=== PATIENT | female | born 1940 | race Caucasian/White ===

== ENCOUNTER 2017-01-01 10:03 | Inpatient (IN) | payer MEDICARE, OTHER ==
[~2017-01-01] VITALS: Ht 157.5 cm; Wt 56.6 kg
--- NOTE | ~2017-01-01 | HEMODYNAMI ---
PATIENT:RUPESH JACOB MEDICAL RECORD: [id number] : 44 LOCATION:[facility] D.2104 ADMISSION DATE: 01/01/17 Generatedon:01/02/20179:52 Patient name: RUPESH JACOB Patient #: [id number] SSN: : 1940 Date of study: 01/02/2017 Page: Of Hemodynamic Procedure Report Patient Data Patient Demographics Procedure consent was obtained First Name: RUPESH Gender: Female Last Name: NIDIA : 1940 Patient #: [id number] Age: 76 year(s) Race: Unknown Additional ID: [id number] Contact details [address]: [address] [place] [address] ROAD State: [place] City: [place] Zip code: [address] Admission Admission Data Admission Date: 01/01/2017 Admission Time: 10:03 Room #: D2104 Procedure Procedure Types Cath Procedure Peripheral Cath Diagnostic Procedure Miscellaneous Procedure Description Procedure Date Procedure Date: 01/02/2017 Procedure Start Time: 8:56 Procedure Staff Name Function Johan Mtz MD Performing Physician Jaimie Ho RT Scrub Magaly Tolbert RN Nurse Jaimie Gillette RN Nurse Nikhil Mckeon RT Monitor Procedure Data Cath Procedure Fluoroscopy Diagnostic fluoroscopy Total fluoroscopy Time: time: 12.3 min 12.3 min Diagnostic fluoroscopy Total fluoroscopy dose: 529 dose: 529 mGy mGy Contrast Material Contrast Material Type Amount (ml) Isovue 300 99 Entry Location Entry Primary Successful Side Size Upsize Upsize Entry Closure Succes sful Closure Location (Fr) 1 (Fr) 2 (Fr) Remarks Device Remarks Femoral Right 5 Fr Exoseal artery Diagnostic catheters Device Type Used For End Catheter Placement Merit ULTRA BOLUS FLUSH 5Fr 90CM catheter Merit Impress Mendoza 5FR. 100CM catheter Joshfire HN5 5F/100CM catheter Procedure Medications Medication Administration Route Dosage Fentanyl I.V. 50 mcg Versed I.V. 1 mg Fentanyl I.V. 50 mcg Versed I.V. 1 mg Benadryl I.V. 50 mg Fentanyl I.V. 50 mcg Versed I.V. 1 mg Hydralizine 10 mg Hemodynamics Rest Heart Rate: 61 (bpm) Snapshots Pre Cath Intra NCS Post Cath Vital Signs Time Heart Resp SPO2 NIBP (mmHg) Rhythm Pain Sedation Rate (ipm) (%) Status Level (bpm) 8:38:24 63 13 100 169/63(90) NSR 0 (11) 10(A) , No pain 8:43:07 61 15 98 79/37(63) NSR 0 (11) 10(A) , No pain 8:48:10 60 14 100 178/72(153) NSR 0 (11) 10(A) , No pain 8:53:09 65 17 100 Measuring NSR 0 (11) 10(A) , No pain 8:54:31 62 14 100 Time NSR 0 (11) 10(A) Exceeded , No pain 8:58:39 60 15 100 149/83(136) NSR 0 (11) 10(A) , No pain 9:03:03 60 15 98 166/67(138) NSR 0 (11) 10(A) , No pain 9:07:38 61 14 99 168/54(128) NSR 0 (11) 10(A) , No pain 9:12:04 59 14 98 173/74(109) NSR 0 (11) 10(A) , No pain 9:17:03 65 13 100 Measuring NSR 0 (11) 10(A) , No pain 9:21:21 69 19 100 193/76(143) NSR 0 (11) 10(A) , No pain 9:26:59 66 19 100 195/76(136) NSR 0 (11) 10(A) , No pain 9:31:31 63 19 100 187/86(155) NSR 0 (11) 10(A) , No pain 9:36:06 64 18 100 198/77(131) NSR 0 (11) 10(A) , No pain 9:40:42 63 19 98 186/81(130) NSR 0 (11) 10(A) , No pain 9:45:41 60 15 100 Measuring NSR 0 (11) 10(A) , No pain 9:46:14 60 13 100 184/60(127) NSR 0 (11) 10(A) , No pain Medications Time Medication Route Dose Verified Delivered Reason Notes Effectiv eness by by 8:55:50 Fentanyl I.V. 50 Magaly Magaly for sedation mcg Didi Tolbert RN RN 8:55:55 Versed I.V. 1 mg Magaly Magaly for sedation Didi Finneyaway RN RN 9:05:12 Fentanyl I.V. 50 Magaly Magaly for sedation mcg Didi Didi RN RN 9:05:28 Versed I.V. 1 mg Magaly Magaly for sedation Didi Tolbert RN RN 9:13:26 Benadryl I.V. 50 mg Magaly Magaly for sedation Didi Tolbert RN RN 9:30:41 Fentanyl I.V. 50 Magaly Magaly for sedation mcg Didi Tolbert RN RN 9:30:56 Versed I.V. 1 mg Magaly Magaly for sedation Didi Finneyaway RN RN 9:40:51 Hydralizine 10 mg Magaly Magaly for Didi Tolbert hypertension RN netezza architect Log Time Note 8:29:17 Nikhil Mckeon RT (R) (CV) sent for patient. Start room use. 8:29:25 Time tracking: Regular hours 8:29:29 Plan of Care:Hemodynamics will remain stable., Cardiac rhythm will remain stable., Comfort level will be maintained., Respiratory function will remain adequate., Patient/ family verbilizes understanding of procedure., Procedure tolerated without complication., Recovers from procedure without complications.. 8:29:36 Patient received from Med II to Alert and oriented. Tansferred to table in Supine position. 8:29:37 Correct patient and procedure confirmed by team. 8:29:39 Signed procedure consent form obtained from patient. 8:29:40 ECG and BP/O2 sat monitors applied to patient. 8:29:41 Full Disclosure recording started 8:29:42 8:29:47 H&P Date Dictated: 01/02/2017 Within 30 days and on chart.. 8:29:51 Pre-procedure instructions explained to patient. 8:29:52 Pre-op teaching completed and patient verbalized understanding. 8:29:54 Family in waiting room. 8:29:56 Patient NPO since Midnight. 8:30:00 Is the patient allergic to Iodine/contrast media? No. 8:30:01 Is patient on blood thinner?Yes 8:30:05 ACC The patient was administered the following blood thiners within the last 24 hours: ACCAspirin, ACCPlavix 8:30:07 If diabetic: On Metformin? No 8:30:08 8:30:09 ----Pre-sedation anethsthesia assessment.---- 8:30:11 Previous problem with sedation/anesthesia? No ? 8:30:12 Snore? Yes 8:30:14 Sleep apnea? No 8:30:15 Deviated septum? No 8:30:16 Opens mouth fully? Yes 8:30:18 Sticks out tongue? Yes 8:30:20 Airway obstruction? No ? 8:30:22 Dentures? No ? 8:30:23 8:30:28 Use device set IR Diagnostic 8:30:29 Acist Syringe opened to sterile field. 8:30:29 Acist Hand Control opened to sterile field. 8:30:29 Acist Manifold opened to sterile field. 8:30:30 Bag Decanter opened to sterile field. 8:30:30 Sterile Angiographic Pack opened to sterile field. 8:37:10 Vital chart was started 8:38:12 Pre procedure: right dorsailis pedis pulse Doppler 8:38:19 Pre procedure: left dorsailis pedis pulse Doppler 8:39:27 Right groin area was prepped with chlora-prep and draped in sterile fashion 8:39:35 Alarms reviewed by R. N. 8:39:39 Sharps counted by scrub and verified by R.N. 8:48:19 Baseline sample Acquired. 8:48:25 Rhythm: sinus rhythm 8:55:32 Physician arrived 8:55:32 --------ALL STOP TIME OUT------ 8:55:33 Final Timeout: patient, procedure, and site verified with staff and physician. All members of the team are in agreement. 8:55:35 Right groin site verified by team. 8:55:41 Physical assessment completed. ASA score P 3 - A patient with severe systemic disease as per Johan Mtz MD. 8:55:46 Sedation plan: IV Moderate Sedation Versed, Fentanyl 8:55:50 Fentanyl 50 mcg I.V. was administered by Magaly Tolbert RN; for sedation; 8:55:55 Versed 1 mg I.V. was administered by Magaly Tolbert RN; for sedation; 8:56:02 Procedure started. 8:56:09 Local anesthetic to right femoral artery with Lidocaine 1% by Johan Mtz MD.INITIAL ACCESS ONLY 8:56:37 TUBING, CONTRAST INJCTN HI PRES opened to sterile field. 8:56:37 Micropuncture VSI 4FR kit opened to sterile field. 8:56:38 [employer] HealthSON 145cm guide wire opened to sterile field. 8:56:38 Terumo 5Fr [place] Sheath opened to sterile field. 8:56:41 A TickPick ULTRA BOLUS FLUSH 5Fr 90CM catheter was advanced over the wire and used for . 8:56:56 A 5 Fr sheath was inserted into the Right Femoral artery 9:05:12 Fentanyl 50 mcg I.V. was administered by Magaly Tolbert RN; for sedation; 9:05:28 Versed 1 mg I.V. was administered by Magaly Tolbert RN; for sedation; 9:07:09 A TickPick Impress Mendoza 5FR. 100CM catheter was advanced over the wire and used for . 9:08:[address] .035 145 glide wire opened to sterile field. 9:13:26 Benadryl 50 mg I.V. was administered by Magaly Tolbert RN; for sedation; 9:26:59 A Cook HN5 5F/100CM catheter was advanced over the wire and used for . 9:30:41 Fentanyl 50 mcg I.V. was administered by Magaly Tolbert RN; for sedation; 9:30:56 Versed 1 mg I.V. was administered by Magaly Tolbert RN; for sedation; 9:40:51 Hydralizine 10 mg was administered by Magaly Tolbert RN; for hypertension; 9:41:33 Cordis 5Fr Exoseal opened to sterile field. 9:43:31 Sheath removed intact; hemostasis achieved with Exoseal to the Right Femoral artery. 9:43:34 Procedure ended.(Physican Out) 9:43:49 Fluoroscopy time 12.30 minutes. 9:43:53 Fluoroscopy dose: 529 mGy 9:43:53 Flurop Dose total: 529 9:44:04 Contrast amount:Isovue 300 99ml. 9:44:06 Sharps counted by scrub and verified by R.N. 9:44:07 Insertion/operative site no bleeding no hematoma. 9:44:11 Post-op/insertion site Right Femoral artery dressed using a 4 x 4 and Tegaderm. 9:44:14 Post right femoral artery:stable 9:44:15 Post Procedure Pulses reassessed and unchanged 9:44:24 Post-procedure physical assessment completed. ASA score P 3 - A patient with severe systemic disease as per Johan Mtz MD. 9:44:28 Post procedure rhythm: unchanged. 9:44:32 Post procedure instruction explained to patient.Patient verbalizes understanding. 9:51:09 Procedure and supply charges have been captured, reviewed, submitted and are correct. 9:51:12 Report given to Med II. 9:51:15 Patient transfered to Med II with Bed. 9:52:40 Vital chart was stopped Device Usage Item Name Manufacture Quantity Catalog Number Hospital Part Current Min imal Lot# / Charge Number Stock Stock Serial# Code Acist Syringe Acist 1 86239 356136 969160 [id number] 20 In Ovo Acist Hand Acist 1 70269 502449 469029 806692 5 Control Flint Inc Acist Acist 1 23835 198648 016078 460661 5 Manifold Medical Systems Inc Bag Decanter Microtek 1 2002S 273215 02349 042243 5 Medical Inc. Sterile Cardinal 1 [id number] 528685 820922 5 Angiographic Health Pack TUBING, Merit 1 [id number] 692468 145623 292352 5 CONTRAST Medical INJCTN HI PRES Micropuncture VSI VASCULAR 1 7266V 546126 846599 5 VSI 4FR kit SOLUTIONS Cook [facility] 1 [id number] 487965 494300 5 [id number] 145cm guide wire Terumo 5Fr Terumo 1 [id number] 753656 905759 669992 40 [place] Sheath Merit ULTRA Merit 1 [id number] 090138 733487 5 BOLUS FLUSH Medical 5Fr 90CM catheter Merit Impress Merit 1 [id number] 093100 630483 5 Mendoza Medical 5FR. 100CM catheter Cook [facility] 1 [id number] 732628 932906 [id number] .035 145 glide wire Cook HN5 [facility] 1 [id number] 812921 014385 2 5F/100CM catheter Cordis 5Fr Cardinal 1 EX500 147952 589689 194053 10 [id number] [facility] Signature Audit [place] Stage Time Signature Unsigned Intra-Procedure 01/02/2017 Nikhil 9:52:37 AM Shahanaield RT (R) (CV) Signatures Monitor : Nikhil Signature : Linda RT Date : Time : [facility] [address] [place] [address]
[~2017-01-01 10:03] MED LIST: ASPIRIN325 MG PO; COZAAR25 MG PO; FERROUS FUMARA324 MG PO; HYDROCHLOROTH12.5 M1 PO; HYDROCODONE-APA1 TAB PO; KLONOPIN0.5 MG PO; PLAVIX75 MG PO; PRAVACHOL80 MG PO; PROTONIX40 MG PO; TYLENOL W/CODEI1 TAB PO; ZANAFLEX4 MG PO; ZANTAC150 MG; ZANTAC150 MG PO; ZOLOFT100 MG PO
--- NOTE | 2017-01-01 10:25 | NUR ---
PT RECEIVED TO ROOM 2103. PT ORIENTED TO ROOM AND CALL LIGHT, WILL ASSESS PT AND START PLAN OF CARE. CT HERE TO TAKE PT TO XRAY.
[2017-01-01 10:59] LABS: BASOPHILS 0.9 % (0-2); EOSINOPHILS 4.2 % (0-7); HEMATOCRIT 35.2 % (36.0-48.0); HEMOGLOBIN 10.5 g/dL (12-16); IMMATURE GRANULOCYTES 0.1 % (0-5); LYMPHOCYTES 27.2 % (15-50); MCHC 29.8 g/dL (31.0-37.0); MCV 100.6 fL (80.0-100.0); MEAN PLATELET VOLUME 10.2 fL (7.4-10.4); MONOCYTES 8.1 % (2-11); NEUTROPHILS 59.5 % (40-80); PLATELET COUNT 312 10x3/uL (130-400); RDW 16.6 % (11.5-14.5); WBC 7.6 10x3/uL (4.8-10.8)
--- NOTE | 2017-01-01 11:09 | NUR ---
IV ACCESS-20 GAUGE INSERTED IN RIGHT ARM FOR ACCESS. KHUSHI FINNEY RN
[2017-01-01 11:24] LABS: APTT 27.6 SECONDS (22.8-39.4); INR 0.99 (0.85-1.17); PROTIME 12.9 SECONDS (11.6-15.0)
[2017-01-01 11:30] LABS: ALBUMIN 4.3 g/dL (3.4-5.0); ANION GAP 16.9 mmol/L (8-16); BILIRUBIN - TOTAL 0.17 mg/dL (0.2-1.3); CARBON DIOXIDE 20.8 mmol/L (21.0-32.0); CREATININE - SERUM 1.7 mg/dL (0.6-1.3); POTASSIUM - SERUM 5.7 mmol/L (3.5-5.1); PROTEIN - SERUM 7.2 g/dL (6.4-8.2)
--- NOTE | 2017-01-01 12:29 | NUR ---
CONSENTS SIGNED AND PLACED ON CHART, URINE SAMPLE COLLECTED AND TAKEN TO LAB. INFORMED PT ABOUT SCD'S AND WHAT THEY ARE USED FOR . PT REFUSED TO WEAR THE SCD'S AT THIS TIME, BUT WANTS THEM HOOKED UP TO WEAR THEM AT NIGHT. PT DENIES ANY NEEDS AT THIS TIME. CALL LIGHT IN REACH, NAD NOTED, WILL CONTINUE TO MONITOR.
[2017-01-01] MEDS ORDERED: MUCOMYST 2800 MG/4 M PO (12:39)
[2017-01-01] MEDS ORDERED: ECOTRIN325 MG PO (12:42)
--- NOTE | 2017-01-01 12:49 | NUR ---
PT STATED THAT DR. TABOR TOLD HER THAT SHE COULD TAKE HER OWN HOME MED OF MUCOMYST. WILL LET PHARMACY SO THEY CAN PUT A LABEL ON IT.
[2017-01-01 13:55] VITALS: BP 139/46; Ht 157.5 cm; Wt 56.6 kg
[2017-01-01 14:05] LABS: APPEARANCE CLEAR (CLEAR); BACTERIA MODERATE /hpf (NONE SEEN); BILIRUBIN NEGATIVE (NEGATIVE); COLOR YELLOW (YELLOW); EPITHELIAL CELLS 0-5 /hpf (0-5); GLUCOSE NEGATIVE (NEGATIVE); HYALINE CAST 0-5 /lpf (NONE SEEN); KETONE NEGATIVE (NEGATIVE); LEUKOCYTE ESTERASE TRACE (NEGATIVE); MUCUS >1+ /lpf (NONE SEEN); NITRITE NEGATIVE (NEGATIVE); PROTEIN NEGATIVE (NEGATIVE); RED CELLS - URINE RARE /hpf (0-5); SPECIFIC GRAVITY 1.015 (1.005-1.020); UROBILINOGEN NORMAL (NORMAL); WHITE CELLS - URINE 0-5 /hpf (0-5)
[2017-01-01 16:00] VITALS: BP 108/40
--- NOTE | 2017-01-01 16:30 | NUR ---
CALLED PHARMACY AND TOLD THEM THAT I NEEDED SODIUM BICARB FOR PT. FUEL YARD OPERATOR STATED THAT THEY WERE MIXING IT AND WOULD BRING IT UP SOON.
--- NOTE | 2017-01-01 17:00 | NUR ---
MOSES TABOR NURSE CALLED AND ASKED WHY IV FLUIDS HAD NOT BEEN STARTED YET. THERE WERE NO IV FLUIDS ORDER TO BE STARTED, THE ONLY OREDER ON CHART WAS FOR SODIUM BICARB D5W ML IV SOLN- PRE CONTRAST START AT 3ML/KG/HR XI HR PRIOR TO PROCEDURE, POST CONTRAST- CONTINUE 1ML/KG/HR X6 HRS. ORDER FOR SODIUM BICARBONATE D5W 1000ML IV SOLN. AT 100MLS/HR WAS PUT IN TO START AT [address] BETANCUR AT 1616. IV FLUIDS STARTED INFUSING AT 1710.
--- NOTE | 2017-01-01 19:36 | NUR ---
ASSESSMENT COMPLETE, A&O. RESPERATIONS EVEN ON ROOM AIR. IV TO RIGHT FOREARM WITH SODIUM BICARB INFUSING AT 100, SITE CLEAN AND DRY. PT DENIES PAIN OR NEEDS, BED LOW, CL IN REACH.
--- NOTE | 2017-01-01 19:52 | NUR ---
PLACED ON TELEMETRY, 66 SR PER MT.
[2017-01-01 20:00] VITALS: BP 165/72; BP 203/86
--- NOTE | 2017-01-01 21:49 | NUR ---
HS MEDS GIVEN, PT TAKING OWN HOME DOSE OF MUCOMYST, DENIES PAIN OR NEEDS.
[2017-01-02] VITALS (14 sets, daily range): BP systolic 92–176; BP diastolic 39–106
--- NOTE | 2017-01-02 03:28 | NUR ---
RESTING WITH EYES CLOSED, RESPERATIONS EVEN, NO S/S DISTRESS NOTED.
[2017-01-02 04:44] LABS: BASOPHILS 0.7 % (0-2); EOSINOPHILS 5.7 % (0-7); HEMATOCRIT 33.4 % (36.0-48.0); HEMOGLOBIN 10.1 g/dL (12-16); IMMATURE GRANULOCYTES 0.1 % (0-5); LYMPHOCYTES 17.8 % (15-50); MCHC 30.2 g/dL (31.0-37.0); MCV 99.1 fL (80.0-100.0); MEAN PLATELET VOLUME 10.1 fL (7.4-10.4); MONOCYTES 11.4 % (2-11); NEUTROPHILS 64.3 % (40-80); PLATELET COUNT 275 10x3/uL (130-400); RBC 3.37 10x6/uL (4.00-5.40); RDW 16.4 % (11.5-14.5); WBC 8.1 10x3/uL (4.8-10.8)
[2017-01-02 04:49] LABS: APTT 27.8 SECONDS (22.8-39.4); INR 0.98 (0.85-1.17); PROTIME 12.9 SECONDS (11.6-15.0)
[2017-01-02 04:59] LABS: ANION GAP 9.4 mmol/L (8-16); CALCIUM 7.9 mg/dL (8.5-10.1); CARBON DIOXIDE 30.5 mmol/L (21.0-32.0); CREATININE - SERUM 1.3 mg/dL (0.6-1.3); POTASSIUM - SERUM 3.9 mmol/L (3.5-5.1)
--- NOTE | 2017-01-02 05:36 | NUR ---
WILL CONTINUE WITH PLAN OF CARE, CALL LIGHT IN REACH.
--- NOTE | 2017-01-02 07:38 | NUR ---
PT IS RESTING IN BED WITH EYES OPEN. ALERT AND ORIENTED X 3. DENIES ACUTE DISCOMFORT AT THIS TIME. PT JUST SHOWERED FOR PROCEDURES TODAY. IV INFUSING TO RFA WITHOUT DIFFICULTY. NO REDNESS OR EDEMA NOTED AT THE INSERTION SITE. TELEMETRY UNIT IS INTACT. SR'S ARE UP X 2 IN BED. CALL LIGHT AND BEDSIDE TABLE ARE WITHIN EASY REACH.
--- NOTE | 2017-01-02 08:25 | NUR ---
PT DEPARTING UNIT FOR PROCEDURES AT THIS TIME.
--- NOTE | 2017-01-02 12:04 | NUR ---
IV FLUIDS STOPPED PER MD ORDER.
--- NOTE | 2017-01-02 14:59 | NUR ---
PT ASSISTED UP TO VOID. UA SENT TO LAB.
--- NOTE | 2017-01-02 15:49 | NUR ---
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 Patient gave consent to complete assessment. Patient lives in a one story home with her . She is independent in her care at home. She does not use dme nor does she have community resources. She denied dc needs at this time. She feels dc to home with spouse is safe. Cm will continue to follow and will assist with dc plans/needs. Gisel Henning RN, [facility] [phone] Is the patient Alert and Oriented? Yes * How many steps to enter\exit or inside your home? none * PCP Dr. Ryan Leavitt * Pharmacy [facility] [employer] * Preadmission Environment Home with Family * ADLs Independent * Equipment None * List name and contact numbers for known caregivers / representatives who currently or will assist patient after discharge: Zach Jacob - spouse - [phone] * Community resources currently utilized None * Additional services required to return to the preadmission environment? No * Can the patient safely return to the preadmission environment? Yes * Has this patient been hospitalized within the prior 30 days at any hospital? No
--- NOTE | 2017-01-02 17:08 | NUR ---
PT IS RESTING IN BED FEEDING SELF SUPPER. NO NEEDS VOICED. GROIN INCISION IS SOFT AND NONTENDER. NO BLEEDING NOTED.
[2017-01-02] MEDS ORDERED: ASPIRIN EC81 M1 PO (17:51)
--- NOTE | 2017-01-02 19:15 | NUR ---
PT RECEIVED LYING IN BED AAOX3 WATCHING TV AT THIS TIME. S/L NOTED TO RT FOREARM. DRESSING CDI. HEART RRR. LUNG SOUNDS CLEAR BILATERALLY. BOWEL SOUNDS ACTIVE X4 QUADRENTS. ABDOMEN SOFT, NON-TENDER. INCISION NOTED TO RIGHT GROIN WITH DRESSING. CDI. PEDAL PULSES EQUAL BILATERALLY. PT DENIES NEEDS AT THIS TIME. RATES PAIN 2/10. BED LOW. PHONE AND CALL LIGHT IN REACH. SRX2.
--- NOTE | 2017-01-02 21:57 | NUR ---
PM MEDS GIVEN AT THIS TIME. PT DENIES OTHER NEEDS. BED LOW. PHONE AND CALL LIGHT IN REACH. SRX2.
--- NOTE | 2017-01-02 23:41 | NUR ---
PT RESTING QUIETLY AT THIS TIME WITH EYES CLOSED. RESPIRATIONS EVEN, NON-LABORED. NO ACUTE DISTRESS NOTED AT THIS TIME. BED LOW. PHONE AND CALL LIGHT IN REACH. SRX2.
[2017-01-03 00:56] VITALS: BP 130/39
[2017-01-03 04:00] VITALS: BP 146/66
--- NOTE | 2017-01-03 08:08 | NUR ---
AM ROUNDS - PT AWAKE IN BED. DRESSING TO RIGHT GROIN THAT IS CLEAN, DR AND INTACT FROM A STEN PLACEMENT ON 5MAY17. BILATERAL PEDAL PULSES PRESENT. PT ON RA. RIGHT FA, SL. MONITOR SHOWING SR, HR 69. NO NEEDS AT THIS TIME. WILL CONTINUE TO MONITOR.
[2017-01-03 09:30] VITALS: BP 142/52
[2017-01-03 10:42] LABS: BASOPHILS 0.4 % (0-2); HEMATOCRIT 35.4 % (36.0-48.0); HEMOGLOBIN 10.7 g/dL (12-16); IMMATURE GRANULOCYTES 0.2 % (0-5); MCH 29.9 pg (26.0-34.0); MCHC 30.2 g/dL (31.0-37.0); MCV 98.9 fL (80.0-100.0); MONOCYTES 10.8 % (2-11); NEUTROPHILS 68.6 % (40-80); PLATELET COUNT 309 10x3/uL (130-400); RBC 3.58 10x6/uL (4.00-5.40); RDW 16.3 % (11.5-14.5); WBC 8.9 10x3/uL (4.8-10.8)
[2017-01-03 10:49] LABS: CALCIUM 8.5 mg/dL (8.5-10.1); CARBON DIOXIDE 30.7 mmol/L (21.0-32.0); CREATININE - SERUM 1.5 mg/dL (0.6-1.3); POTASSIUM - SERUM 3.7 mmol/L (3.5-5.1)
[2017-01-03] MEDS ORDERED: COZAAR25 MG PO ×2 (12:40)
--- NOTE | 2017-01-03 13:06 | HP ---
PATIENT: RUPESH JACOB MEDICAL RECORD: [id number] ACCOUNT: [id number] LOCATION:[address] : 42 ADMISSION DATE: 01/01/17 HISTORY AND PHYSICAL EXAMINATION RUPESH Schneider (76yo, F) ID# [id number]. Date/Time12/29/2016 11:78QPVRW21//1942Service Dept.NPP[facility] ClinicProviderEDLUCILLE TABOR MDInsuranceMed Primary: [employer] - GOLD PLUS (MEDICARE REPLACEMENT/ADVANTAGE - HMO) Insurance # : [id number] Referring Provider Name : HANNAH WILLIAM Employer Name : UNKNOWN Med Secondary: [facility] Insurance # : [id number] Referring Provider Name : HANNAH WILLIAM Employer Name : UNKNOWN Prescription: ARGSDIR - Member is eligible. Chief Complaint Carotid stenosis carotid stenosis/carotid doppler Patient's Care Team Referring Provider (): HANNAH WILLIAM: [address] [place] [address], , Limehouse Worker: NILESH HERNANDEZ MD: [address] [place] [id number], , Vitals BP:110/60 sitting R arm 12/29/2016 10:54 am 100/50 sitting L arm 12/29/2016 10:54 amHR:66R/R 12/29/2016 10:54 amHt:5 ft 2 in 12/29/2016 10:54 amWt:122 lbs 12/29/2016 10:51 amBMI:22.3 12/29/2016 10:54 amAllergies Reviewed Allergies PRILOSECSULFA (SULFONAMIDE ANTIBIOTICS)ULTRAMMedications Reviewed Medications acetaminophen 300 mg-codeine 30 mg tablet Take 1 tablet(s) every 6 hours by oral route as needed.12/12/16 filledKandu Systemsalpha lipoic acid 200 mg capsule Take 1 capsule(s) 3 times a day by oral route.12/12/16 enteredCindy BrownALPRAZolam 0.5 mg nwplza34/11/17 filledKandu SystemsclonazePAM 0.5 mg tablet Take 1 tablet(s) twice a day by oral route as needed.12/12/16 filledArgus Health SystemsEstrace 0.01% (0.1 mg/gram) vaginal cream Insert 0.1 g twice a week by vaginal route.12/12/16 enteredCindy BrownhydroCHLOROthiazide 12.5 mg wviocy16/12/16 filledArgus Calypto Design Systems SystemshydroCHLOROthiazide 25 mg tablet Take 1 tablet(s) every day by oral route.12/15/16 filledArgus Health SystemsHYDROcodone 10 mg-acetaminophen 325 mg jrmiit73/18/16 filledArgus Health Systemslisinopril 20 mg zxzykf45/23/16 filledArgus Health Systemslosartan 25 mg uwmqta53/21/16 filledArgus Health Systemslosartan 50 mg tablet Take 0.5 tablet(s) twice a day by oral route.12/15/16 filledArgus Calypto Design Systems Systemsnitroglycerin 0.[address] 1 tablet(s) by sublingual route as directed.12/12/16 enteredCindusty Batrespantoprazole 40 mg tablet,delayed release Take 1 tablet(s) every day by oral route.12/12/16 enteredCindusty BrownPlavix 75 mg tablet Take 1 tablet(s) every day by oral route.12/12/16 enteredPark Batrespravastatin 80 HISTORY AND PHYSICAL [id number] NIDIA,RUPESH mg tablet Take 1 tablet(s) every day by oral route.12/12/16 enteredPark BatresraNITIdine 150 mg tuxnmd87/07/16 filledKandu SystemsSlow Release Iron 47.5 mg iron tablet,extended release Take 1 tablet(s) twice a day by oral route.12/12/16 enteredCindusty BatrestiZANidine 4 mg capsule Take 1 capsule(s) twice a day by oral route as needed.12/12/16 enteredCindusty BrowntiZANidine 4 mg lvzazi14/23/17 filledArgus Health SystemsZoloft 100 mg tablet Take 1 tablet(s) every day by oral route.12/12/16 Onelia Adkinsms Reviewed Problems Carotid artery stenosis - Onset: 12/12/2016, Bilateral Family History Discussed Family History Maternal Grandfather- Myocardial infarctionMother- HyperlipidemiaSocial History Discussed Social History Cardiology Family history of heart disease?: Y Smoking Status: Former smoker High Cholesterol: Y High blood pressure: Y Diabetes: N Is blood transfusion acceptable in an emergency?: Y Surgical History Reviewed Surgical History Other - PPM placement Other - orthopedic surgery Other - PTCA/stent Other - appendectomy Other - Hysterectomy Carotid Endarterectomy - Left x 3 CLOTH EXAMINER History (not configured) Past Medical History Discussed Past Medical History Angioplasty (balloon): Y Chest Pain: Y Coronary Artery Disease: Y Dizzy Spells: Y Heart Disease: Y Heart stents: Y High Blood Pressure: Y Hyperlipidemia: Y Shortness of Breath: Y Documents for Discussion N/A Screening None recorded. HPI Cerebral Vascular Disease Reported by patient. Quality: blurred vision ("I think by b/p gets to low? it gets too bright. difficult to see.") HISTORY AND PHYSICAL [id number] RUPESH JACOB carotid artery disease Possible renovascular hypertension ROS Patient reports exercise intolerance but reports no fever, no night sweats, no significant weight gain, and no significant weight loss. She reports no jugular vein distension and no swollen glands; bilateral carotid bruits. She reports arthralgias/joint pain and swelling in the extremities but reports no muscle aches, no muscle weakness, and no back pain. She reports no loss of consciousness, no weakness, no numbness, no seizures, no dizziness, and no headaches; visual disturbances. She reports no dry eyes, no irritation, and no vision change. She reports no difficulty hearing and no ear pain. She reports no frequent nosebleeds a nd no nose/sinus problems. She reports no sore throat, no bleeding gums, no snoring, no dry mouth, no mouth ulcers, no oral abnormalities, and no teeth problems. She reports no chest pain, no arm pain on exertion, no shortness of breath when walking, no s h ortness of breath when lying down, no palpitations, and no known heart murmur. She reports no cough, no wheezing, no shortness of breath, and no coughing up blood. She reports no abdominal pain, no vomiting, normal appetite, no diarrhea, not vomiting bloo d , no nausea, and no constipation. She reports no incontinence, no difficulty urinating, no hematuria, and no increased frequency. She reports no abnormal mole, no jaundice, and no rashes. She reports no depression, no sleep disturbances, feeling safe in r elationship, and no alcohol abuse. She reports no fatigue. She reports no swollen glands and no bruising. She reports no runny nose, no sinus pressure, no itching, no hives, and no frequent sneezing. ROS as noted in the HPI Physical Exam Patient is a 76-year-old female. Constitutional: General Appearance well nourished and developed and healthy-appearing. Level of Distress NAD. Ambulation ambulating normally. Cardiovascular: Apical Impulse not displaced or no thrill; pacemaker left subclavian area. Heart Auscultation normal s1 and s2; no murmurs, rubs, or gallops; and RRR. Neck Vessels bilateral carotid bruits. Arterial Pulses no abdominal aorta bruits, femoral bruits, or popliteal bruits and 2+ bilateral, carotid 2+ bilateral, femoral 2+ bilateral , popliteal 2+ bilateral, and dorsalis pedis 2+ bilateral. Edema no edema or varicosities. Lungs: Repiratory Effort no dyspnea. Percussion no dullness or flatness and hyperresonance . Auscultation no wheezing, rhonchi, or rales / crackles and breathing sounds normal, good air movement, and CTA except as noted. Abdomen: Bowl Sounds normal. Inspection and Palpation no tenderness, guarding, masses, or rebound tenderness and soft and non-distended. Liver non-tender and no hepatomegaly. Spleen non-tender and no splenomegaly. Hernia none palpable. Musculoskeletal System: Gait And Stance normal gait and stance. Digits and Nails normal nails and no cyanosis. Joints, Bones, and Muscles limited ROM; arthritis. Neurologic: Cranial Nerves grossly intact. Reflexes DTRs 2+ bilaterally throughout. Sensation grossly intact. Lymph Nodes: Lymph Nodes no cervical LAD, supraclavicular LAD, axillary LAD, or inguinal LAD. Eyes: Lids and Conjunctivae no discharge or pallor and non-injected. Pupils PERRLA. HISTORY AND PHYSICAL [id number] RUPESH JACOB Cornea grossly intact. EOM EOMI. Lens clear. Sclera non-icteric. Neck: Neck no masses or enlarged lymph nodes and supple, trachea midline, and carotid bruits (bilateral). Thyroid no enlargement or nodules and non-tender. Skin: Inspection and Palpation no rash, lesions, ulcers, jaundice, or abnormal nevi. Assessment / Plan carotid artery disease postop Times 3 left Possible renovascular hypertension Chronic renal failure stage III 1. Carotid artery stenosis - Bilateral I65.29: Occlusion and stenosis of unspecified carotid artery CAROTID STENOSIS: CARE INSTRUCTIONS Discussion Notes Unable to have the MRI Pacemaker chronic renal failure Will need admission for hydration and renal evaluation Interventional radiology for formal vessel and study possible stent Renal arteriograms DAMARIS TABOR MD at 1306 CC: [id number] DICTATION DATE: 12/29/16 1110 UNCRATER: DM 01/02/17 0824 ADM IN [facility] [address] [place] [address]
--- NOTE | 2017-01-03 13:50 | NUR ---
DR. TABOR CALLED AND WAS HAVING TECHNICAL ISSUES D/C A PT. TEN PIN BOWLING CENTRE MANAGER NOTIFIED. DR. TABOR SAID THAT HE DID NOT HAVE TIME TO BE "MESSING" WITH THIS AND STATED "WELL I AM GIVING YOU A VERBAL D/C ORDER".
[2017-01-03 16:11] VITALS: BP 171/68
--- NOTE | 2017-01-03 17:12 | NUR ---
PT GIVEN VERBAL AND WRITTEN D/C INSTRUCTIONS. D/C HOME WITH SPOUSE. PT LEFT FLOOR VIA WHEELCHAIR BY STAFF MEMEBRS. D/C IV IN RIGHT FS. CATH TIP INTACT. PT TOLERATED WELL. WILL D/C
== END 2017-01-03 15:30 | disposition home or self-care (01) | DRG 68 ==
LOC: D.M2 10:03
PROVIDERS: Internal Medicine; Radiology Diagnostic Radiology; ADMIT Internal Medicine Cardiovascular Disease
PROC: B3121ZZ Fluoroscopy of Left Subclavian Artery using Low Osmolar Contrast (ICD-10-PCS; 2017-01-02)
PROC: B4101ZZ Fluoroscopy of Abdominal Aorta using Low Osmolar Contrast (ICD-10-PCS; 2017-01-02)
PROC: B31G1ZZ Fluoroscopy of Bilateral Vertebral Arteries using Low Osmolar Contrast (ICD-10-PCS; principal; 2017-01-02 08:45)
DX: I65.23 Occlusion and stenosis of bilateral carotid arteries (principal); E87.2 Acidosis; N28.0 Ischemia and infarction of kidney; R56.9 Unspecified convulsions; I12.9 Hypertensive chronic kidney disease with stage 1 through stage 4 chronic kidney disease, or unspecified chronic kidney disease; N18.3 Chronic kidney disease, stage 3 (moderate); K21.9 Gastro-esophageal reflux disease without esophagitis; F41.9 Anxiety disorder, unspecified; E87.5 Hyperkalemia

== ENCOUNTER 2018-05-29 18:41 | Inpatient (IN) | payer MEDICARE, OTHER ==
[~2018-05-29] VITALS: Ht 154.9 cm; Wt 55.9 kg
[~2018-05-29 18:41] MED LIST changes: +ASPIRIN EC81 M1 PO; +ECOTRIN325 MG PO; +MUCOMYST 2800 MG/4 M PO
[2018-05-29 20:12] VITALS: BP 198/70
[2018-05-29 20:14] LABS: HEMATOCRIT 28.2 % (36.0-48.0); HEMOGLOBIN 8.5 g/dL (12-16); MCH 25.5 pg (26.0-34.0); MCHC 30.1 g/dL (31.0-37.0); MCV 84.7 fL (80.0-100.0); MEAN PLATELET VOLUME 9.4 fL (7.4-10.4); PLATELET COUNT 435 10x3/uL (130-400); RBC 3.33 10x6/uL (4.00-5.40); WBC 23.5 10x3/uL (4.8-10.8)
[2018-05-29 20:16] LABS: APPEARANCE CLEAR (CLEAR); BILIRUBIN NEGATIVE (NEGATIVE); COLOR DK YELLOW (YELLOW); GLUCOSE NEGATIVE (NEGATIVE); KETONE NEGATIVE (NEGATIVE); NITRITE POSITIVE (NEGATIVE); PROTEIN TRACE mg/dL (NEGATIVE); UROBILINOGEN NORMAL (NORMAL)
[2018-05-29 20:18] LABS: EPITHELIAL CELLS 0-5 /hpf (0-5); RED CELLS - URINE 0-5 /hpf (0-5)
[2018-05-29 20:19] LABS: APTT 23.5 SECONDS (22.8-39.4); BACTERIA MODERATE /hpf (NONE SEEN); GRANULAR CAST 0-5 /lpf (NONE SEEN); INR 1.09 (0.85-1.17); PROTIME 13.7 SECONDS (11.6-15.0)
[2018-05-29 20:20] LABS: D-DIMER-QUANTITATIVE 2.7 ug/mLFEU (0.20-0.54)
[2018-05-29 20:26] LABS: ALBUMIN 3.6 g/dL (3.4-5.0); ALKALINE PHOSPHATASE 186 U/L (46-116); ALT (SGPT) 14 U/L (10-68); BILIRUBIN - TOTAL 0.34 mg/dL (0.2-1.3); CALC OSMOLALITY 298 mosm/kg (275-300); CALCIUM 8.6 mg/dL (8.5-10.1); CARBON DIOXIDE 18.7 mmol/L (21.0-32.0); CHLORIDE - SERUM 108 mmol/L (98-107); CREATININE - SERUM 3.6 mg/dL (0.6-1.3); GLUCOSE 89 mg/dL (74-106); PROTEIN - SERUM 7.2 g/dL (6.4-8.2); SODIUM 142 mmol/L (136-145); UREA NITROGEN 59 mg/dL (7-18); eGFR NON AFRICAN AMERICAN 13 mL/min (90-120)
[2018-05-29 20:38] LABS: AMYLASE - SERUM 142 U/L (25-115); CKMB 5.7 U/L (0.0-3.6); CREATINE KINASE 149 UL (21-215); LIPASE 524 U/L (73-393); TROPONIN-I 0.027 ng/mL (0.000-0.060)
[2018-05-29 20:49] LABS: LYMPHOCYTES 7 % (15-50); MONOCYTES 2 % (2-11); NEUTROPHILS 91 % (40-80)
[2018-05-29 20:50] LABS: ELLIPTOCYTES 1+; PLATELET ESTIMATE INCREASED; SCHISTOCYTES OCC
[2018-05-29 20:51] LABS: ROULEAUX OCC
[2018-05-29 22:09] VITALS: BP 161/56
[2018-05-29 22:53] VITALS: BP 142/47; BMI 22.2
[2018-05-30 05:13] VITALS: BP 145/57
[2018-05-30 05:40] LABS: BASOPHILS 0.1 % (0-2); EOSINOPHILS 0 % (0-7); HEMATOCRIT 25.2 % (36.0-48.0); HEMOGLOBIN 7.6 g/dL (12-16); IMMATURE GRANULOCYTES 0.3 % (0-5); LYMPHOCYTES 7.4 % (15-50); MCH 25.7 pg (26.0-34.0); MCHC 30.2 g/dL (31.0-37.0); MCV 85.1 fL (80.0-100.0); MEAN PLATELET VOLUME 9.6 fL (7.4-10.4); MONOCYTES 6.1 % (2-11); NEUTROPHILS 86.1 % (40-80); PLATELET COUNT 382 10x3/uL (130-400); RBC 2.96 10x6/uL (4.00-5.40); RDW 17.2 % (11.5-14.5); WBC 20.6 10x3/uL (4.8-10.8)
[2018-05-30 05:54] LABS: ALBUMIN 3.1 g/dL (3.4-5.0); ANION GAP 20.3 mmol/L (8-16); BILIRUBIN - TOTAL 0.31 mg/dL (0.2-1.3); CALCIUM 8.2 mg/dL (8.5-10.1); CARBON DIOXIDE 18.3 mmol/L (21.0-32.0); CREATININE - SERUM 2.9 mg/dL (0.6-1.3); POTASSIUM - SERUM 4.6 mmol/L (3.5-5.1); PROTEIN - SERUM 6.4 g/dL (6.4-8.2)
[2018-05-30 14:11] LABS: % SATURATION 2 % (15-55); IRON 8 ug/dl (35-150); TOTAL IRON BIND CAPACITY 307 ug/dl (260-445); UNSAT IRON BIND CAPACITY 299 ug/dl (150-375)
[2018-05-30 14:37] LABS: APPEARANCE CLEAR (CLEAR); BILIRUBIN NEGATIVE (NEGATIVE); COLOR YELLOW (YELLOW); GLUCOSE NEGATIVE (NEGATIVE); KETONE SMALL mg/dL (NEGATIVE); NITRITE NEGATIVE (NEGATIVE); PROTEIN NEGATIVE (NEGATIVE); SPECIFIC GRAVITY 1.015 (1.005-1.020); UROBILINOGEN NORMAL (NORMAL)
[2018-05-30 14:39] LABS: RED CELLS - URINE 0-5 /hpf (0-5)
[2018-05-30 14:40] LABS: BACTERIA MODERATE /hpf (NONE SEEN); EPITHELIAL CELLS 0-5 /hpf (0-5)
[2018-05-30] MEDS ORDERED: LEXAPRO20 MG PO (17:39)
[2018-05-30] MEDS ORDERED: ALPHA LIPOIC ACID (17:41)
[2018-05-30] MEDS ORDERED: COZAAR50 MG PO (17:43)
[2018-05-30] MEDS ORDERED: CATAPRES0.1 MG PO (17:43)
[2018-05-30] MEDS ORDERED: COZAAR25 MG PO (17:47)
[2018-05-30 20:00] VITALS: BP 114/43
[2018-05-31] VITALS: BP 129/88
[2018-05-31 04:00] VITALS: BP 136/50
[2018-05-31 08:38] VITALS: BP 160/55
[2018-05-31 12:15] VITALS: BP 149/53
[2018-05-31 13:28] LABS: BASOPHILS 0.4 % (0-2); HEMATOCRIT 23.1 % (36.0-48.0); IMMATURE GRANULOCYTES 0.1 % (0-5); LYMPHOCYTES 17.4 % (15-50); MCH 25.6 pg (26.0-34.0); MEAN PLATELET VOLUME 9.5 fL (7.4-10.4); MONOCYTES 6.9 % (2-11); NEUTROPHILS 73.2 % (40-80); PLATELET COUNT 320 10x3/uL (130-400); RBC 2.62 10x6/uL (4.00-5.40); RDW 17.8 % (11.5-14.5); WBC 11.2 10x3/uL (4.8-10.8)
[2018-05-31 13:30] LABS: HEMOGLOBIN 6.7 g/dL (12-16)
[2018-05-31 13:31] LABS: MCV 88.2 fL (80.0-100.0)
[2018-05-31 14:38] LABS: BASOPHILS 0.3 % (0-2); EOSINOPHILS 2.6 % (0-7); HEMATOCRIT 23.3 % (36.0-48.0); IMMATURE GRANULOCYTES 0.2 % (0-5); LYMPHOCYTES 16.6 % (15-50); MCH 25.9 pg (26.0-34.0); MCV 86.3 fL (80.0-100.0); MEAN PLATELET VOLUME 8.9 fL (7.4-10.4); NEUTROPHILS 73.3 % (40-80); PLATELET COUNT 313 10x3/uL (130-400); RDW 17.3 % (11.5-14.5); WBC 11.7 10x3/uL (4.8-10.8)
[2018-05-31 14:39] VITALS: Ht 154.9 cm; Wt 55.9 kg
[2018-05-31 15:59] VITALS: BP 152/60
[2018-05-31 18:46] LABS: ANION GAP 12.7 mmol/L (8-16); CALCIUM 7.5 mg/dL (8.5-10.1)
[2018-05-31 18:59] LABS: CARBON DIOXIDE 25.3 mmol/L (21.0-32.0); CREATININE - SERUM 1.8 mg/dL (0.6-1.3)
[2018-05-31 21:24] VITALS: BP 173/60
[2018-05-31] MEDS ORDERED: TYLENOL W/CODEI1 TAB PO (23:35)
[2018-06-01] VITALS: BP 199/71
[2018-06-01 04:44] VITALS: BP 191/86
[2018-06-01 05:47] LABS: BASOPHILS 0.3 % (0-2); EOSINOPHILS 3.6 % (0-7); IMMATURE GRANULOCYTES 0.3 % (0-5); MCH 27.6 pg (26.0-34.0); MCHC 31.6 g/dL (31.0-37.0); MCV 87.3 fL (80.0-100.0); MEAN PLATELET VOLUME 9.8 fL (7.4-10.4); MONOCYTES 7.8 % (2-11); PLATELET COUNT 251 10x3/uL (130-400); RDW 15.7 % (11.5-14.5); WBC 10.8 10x3/uL (4.8-10.8)
[2018-06-01 06:08] LABS: ALBUMIN 2.8 g/dL (3.4-5.0); ANION GAP 14.4 mmol/L (8-16); BILIRUBIN - TOTAL 0.21 mg/dL (0.2-1.3); CALCIUM 7.6 mg/dL (8.5-10.1); CARBON DIOXIDE 23.6 mmol/L (21.0-32.0); CREATININE - SERUM 1.6 mg/dL (0.6-1.3); MAGNESIUM - SERUM 1.5 mg/dL (1.8-2.4); VANCOMYCIN - RANDOM 14.2 ug/mL (10.0-20.0)
[2018-06-01 06:33] LABS: HEMATOCRIT 35.8 % (36.0-48.0); HEMOGLOBIN 11.3 g/dL (12-16)
[2018-06-01 07:30] VITALS: BP 137/84
[2018-06-01 08:18] LABS: FOLATE (FOLIC ACID) - SERUM 12.3 ng/mL (>3.0)
[2018-06-01 11:00] VITALS: BP 162/84
[2018-06-01 15:00] VITALS: BP 167/81
[2018-06-01 20:00] VITALS: BP 219/107
[2018-06-02] VITALS: BP 135/66
[2018-06-02 06:15] LABS: BASOPHILS 0.6 % (0-2); EOSINOPHILS 7.7 % (0-7); HEMATOCRIT 39.5 % (36.0-48.0); HEMOGLOBIN 12.6 g/dL (12-16); IMMATURE GRANULOCYTES 0.4 % (0-5); LYMPHOCYTES 14.6 % (15-50); MCH 27.7 pg (26.0-34.0); MCHC 31.9 g/dL (31.0-37.0); MCV 86.8 fL (80.0-100.0); MEAN PLATELET VOLUME 9.4 fL (7.4-10.4); MONOCYTES 8.6 % (2-11); NEUTROPHILS 68.1 % (40-80); PLATELET COUNT 244 10x3/uL (130-400); RBC 4.55 10x6/uL (4.00-5.40)
[2018-06-02 06:37] VITALS: BP 160/73
[2018-06-02 06:38] LABS: ALBUMIN 2.9 g/dL (3.4-5.0); ANION GAP 8.8 mmol/L (8-16); BILIRUBIN - TOTAL 0.26 mg/dL (0.2-1.3); CALCIUM 7.9 mg/dL (8.5-10.1); CARBON DIOXIDE 27.3 mmol/L (21.0-32.0); CREATININE - SERUM 1.4 mg/dL (0.6-1.3); MAGNESIUM - SERUM 1.4 mg/dL (1.8-2.4); POTASSIUM - SERUM 4.1 mmol/L (3.5-5.1); PROTEIN - SERUM 6.5 g/dL (6.4-8.2); VANCOMYCIN - RANDOM 17.8 ug/mL (10.0-20.0)
[2018-06-02 09:00] VITALS: BP 194/75
[2018-06-02 10:58] VITALS: BP 102/57
[2018-06-02 11:02] VITALS: BP 102/57
[2018-06-02 20:00] VITALS: BP 216/112
[2018-06-03] VITALS: BP 116/70
[2018-06-03 04:00] VITALS: BP 159/57
[2018-06-03 06:28] LABS: BASOPHILS 0.5 % (0-2); HEMATOCRIT 39.7 % (36.0-48.0); HEMOGLOBIN 12.6 g/dL (12-16); IMMATURE GRANULOCYTES 0.4 % (0-5); LYMPHOCYTES 13.5 % (15-50); MCH 27.8 pg (26.0-34.0); MCHC 31.7 g/dL (31.0-37.0); MCV 87.4 fL (80.0-100.0); NEUTROPHILS 68.6 % (40-80); PLATELET COUNT 261 10x3/uL (130-400); RBC 4.54 10x6/uL (4.00-5.40); RDW 16.6 % (11.5-14.5); WBC 10.5 10x3/uL (4.8-10.8)
[2018-06-03 06:45] LABS: ANION GAP 14.6 mmol/L (8-16); BILIRUBIN - TOTAL 0.25 mg/dL (0.2-1.3); CALCIUM 8.3 mg/dL (8.5-10.1); CARBON DIOXIDE 23.8 mmol/L (21.0-32.0); CREATININE - SERUM 1.4 mg/dL (0.6-1.3); MAGNESIUM - SERUM 1.5 mg/dL (1.8-2.4); POTASSIUM - SERUM 4.4 mmol/L (3.5-5.1); PROTEIN - SERUM 6.1 g/dL (6.4-8.2); VANCOMYCIN - RANDOM 8.6 ug/mL (10.0-20.0)
[2018-06-03 09:03] VITALS: BP 150/83
[2018-06-03 11:04] VITALS: BP 202/83
[2018-06-03 20:37] VITALS: BP 209/100
[2018-06-04 01:19] VITALS: BP 161/74
[2018-06-04 05:38] VITALS: BP 182/69
[2018-06-04 06:26] LABS: BASOPHILS 0.6 % (0-2); EOSINOPHILS 9.4 % (0-7); HEMATOCRIT 39.5 % (36.0-48.0); HEMOGLOBIN 12.5 g/dL (12-16); IMMATURE GRANULOCYTES 0.5 % (0-5); LYMPHOCYTES 18.4 % (15-50); MCH 28.1 pg (26.0-34.0); MCHC 31.6 g/dL (31.0-37.0); MCV 88.8 fL (80.0-100.0); MEAN PLATELET VOLUME 10.2 fL (7.4-10.4); MONOCYTES 10.4 % (2-11); NEUTROPHILS 60.7 % (40-80); PLATELET COUNT 286 10x3/uL (130-400); RBC 4.45 10x6/uL (4.00-5.40)
[2018-06-04 06:51] LABS: ALBUMIN 2.8 g/dL (3.4-5.0); ANION GAP 12.4 mmol/L (8-16); BILIRUBIN - TOTAL 0.22 mg/dL (0.2-1.3); CALCIUM 8.3 mg/dL (8.5-10.1); CARBON DIOXIDE 23.8 mmol/L (21.0-32.0); CREATININE - SERUM 1.5 mg/dL (0.6-1.3); MAGNESIUM - SERUM 1.7 mg/dL (1.8-2.4); POTASSIUM - SERUM 4.2 mmol/L (3.5-5.1); PROTEIN - SERUM 6.4 g/dL (6.4-8.2); VANCOMYCIN - RANDOM 14.8 ug/mL (10.0-20.0)
[2018-06-04 09:35] VITALS: BP 158/73
[2018-06-04 12:18] VITALS: BP 109/66
[2018-06-04 21:13] VITALS: BP 210/100
[2018-06-05 00:54] VITALS: BP 121/75
[2018-06-05 05:24] LABS: BASOPHILS 0.5 % (0-2); EOSINOPHILS 9.4 % (0-7); HEMATOCRIT 36.3 % (36.0-48.0); HEMOGLOBIN 11.4 g/dL (12-16); IMMATURE GRANULOCYTES 0.3 % (0-5); MCH 28.2 pg (26.0-34.0); MCHC 31.4 g/dL (31.0-37.0); MCV 89.9 fL (80.0-100.0); MEAN PLATELET VOLUME 9.6 fL (7.4-10.4); NEUTROPHILS 67.8 % (40-80); PLATELET COUNT 263 10x3/uL (130-400); RBC 4.04 10x6/uL (4.00-5.40); RDW 17.1 % (11.5-14.5); WBC 9.4 10x3/uL (4.8-10.8)
[2018-06-05 05:25] VITALS: BP 138/64
[2018-06-05 05:57] LABS: ALBUMIN 2.6 g/dL (3.4-5.0); BILIRUBIN - TOTAL 0.16 mg/dL (0.2-1.3); CALCIUM 8.5 mg/dL (8.5-10.1); CARBON DIOXIDE 21.4 mmol/L (21.0-32.0); CREATININE - SERUM 1.6 mg/dL (0.6-1.3); MAGNESIUM - SERUM 1.7 mg/dL (1.8-2.4); POTASSIUM - SERUM 4.4 mmol/L (3.5-5.1); PROTEIN - SERUM 6.1 g/dL (6.4-8.2); THYROID STIMULATING HORMONE 2.01 uIU/mL (0.36-3.74)
[2018-06-05 08:54] VITALS: BP 143/77
[2018-06-05 12:36] VITALS: BP 157/56
[2018-06-05 16:25] VITALS: BP 171/51
[2018-06-05 20:30] VITALS: BP 204/67
[2018-06-06 00:30] VITALS: BP 155/65
[2018-06-06 04:30] VITALS: BP 140/59
[2018-06-06 05:08] LABS: BASOPHILS 0.5 % (0-2); EOSINOPHILS 8.4 % (0-7); HEMATOCRIT 36.1 % (36.0-48.0); HEMOGLOBIN 11.1 g/dL (12-16); IMMATURE GRANULOCYTES 0.2 % (0-5); LYMPHOCYTES 19.7 % (15-50); MCH 27.8 pg (26.0-34.0); MCHC 30.7 g/dL (31.0-37.0); MCV 90.3 fL (80.0-100.0); MEAN PLATELET VOLUME 9.8 fL (7.4-10.4); NEUTROPHILS 62.2 % (40-80); PLATELET COUNT 265 10x3/uL (130-400); RDW 16.9 % (11.5-14.5); WBC 8.3 10x3/uL (4.8-10.8)
[2018-06-06 05:30] LABS: CALCIUM 8.7 mg/dL (8.5-10.1); CARBON DIOXIDE 21.9 mmol/L (21.0-32.0); CREATININE - SERUM 1.6 mg/dL (0.6-1.3); PHOSPHOROUS 4.2 mg/dL (2.5-4.9); POTASSIUM - SERUM 4.9 mmol/L (3.5-5.1); VANCOMYCIN - RANDOM 15.5 ug/mL (10.0-20.0)
[2018-06-06 08:37] VITALS: BP 172/77
[2018-06-06 11:16] VITALS: BP 112/64
[2018-06-06 22:01] VITALS: BP 184/69
[2018-06-07 00:38] VITALS: BP 187/73
[2018-06-07 06:31] LABS: BASOPHILS 0.6 % (0-2); EOSINOPHILS 9.6 % (0-7); HEMATOCRIT 37.9 % (36.0-48.0); HEMOGLOBIN 11.5 g/dL (12-16); IMMATURE GRANULOCYTES 0.3 % (0-5); LYMPHOCYTES 15.4 % (15-50); MCH 27.6 pg (26.0-34.0); MCHC 30.3 g/dL (31.0-37.0); MCV 90.9 fL (80.0-100.0); MEAN PLATELET VOLUME 10.2 fL (7.4-10.4); NEUTROPHILS 60.1 % (40-80); PLATELET COUNT 287 10x3/uL (130-400); RBC 4.17 10x6/uL (4.00-5.40); RDW 17.5 % (11.5-14.5); WBC 7.9 10x3/uL (4.8-10.8)
[2018-06-07 06:36] VITALS: BP 154/57
[2018-06-07 06:46] LABS: ANION GAP 13.5 mmol/L (8-16); CALCIUM 8.9 mg/dL (8.5-10.1); CARBON DIOXIDE 24.2 mmol/L (21.0-32.0); CREATININE - SERUM 1.4 mg/dL (0.6-1.3); PHOSPHOROUS 4.1 mg/dL (2.5-4.9); POTASSIUM - SERUM 4.7 mmol/L (3.5-5.1)
[2018-06-07 08:51] VITALS: BP 158/69
[2018-06-07 10:55] VITALS: BP 146/63
[2018-06-07 16:45] VITALS: BP 117/60
[2018-06-07 21:04] VITALS: BP 184/86
[2018-06-08 00:56] VITALS: BP 188/94
[2018-06-08 04:22] VITALS: BP 122/55
[2018-06-08 04:34] LABS: BASOPHILS 0.9 % (0-2); EOSINOPHILS 7.5 % (0-7); HEMATOCRIT 36.5 % (36.0-48.0); HEMOGLOBIN 11.1 g/dL (12-16); IMMATURE GRANULOCYTES 0.3 % (0-5); LYMPHOCYTES 20.7 % (15-50); MCH 27.5 pg (26.0-34.0); MCHC 30.4 g/dL (31.0-37.0); MCV 90.6 fL (80.0-100.0); MEAN PLATELET VOLUME 10.7 fL (7.4-10.4); MONOCYTES 10.9 % (2-11); NEUTROPHILS 59.7 % (40-80); PLATELET COUNT 298 10x3/uL (130-400); RBC 4.03 10x6/uL (4.00-5.40); RDW 17.5 % (11.5-14.5); WBC 7.6 10x3/uL (4.8-10.8)
[2018-06-08 04:52] LABS: ANION GAP 10.6 mmol/L (8-16); CALCIUM 8.4 mg/dL (8.5-10.1); CARBON DIOXIDE 26.9 mmol/L (21.0-32.0); PHOSPHOROUS 4.4 mg/dL (2.5-4.9); POTASSIUM - SERUM 4.5 mmol/L (3.5-5.1)
[2018-06-08 04:54] LABS: CREATININE - SERUM 1.8 mg/dL (0.6-1.3)
[2018-06-08 07:49] VITALS: BP 170/73
[2018-06-08 18:17] VITALS: BP 202/87
[2018-06-08 20:29] VITALS: BP 204/82
[2018-06-09 01:10] VITALS: BP 207/82
[2018-06-09 01:37] LABS: APPEARANCE CLEAR (CLEAR); BILIRUBIN NEGATIVE (NEGATIVE); COLOR STRAW (YELLOW); GLUCOSE NEGATIVE (NEGATIVE); KETONE NEGATIVE (NEGATIVE); NITRITE NEGATIVE (NEGATIVE); PROTEIN 2+ mg/dL (NEGATIVE); SPECIFIC GRAVITY 1.005 (1.005-1.020); UROBILINOGEN NORMAL (NORMAL)
[2018-06-09 01:38] LABS: BACTERIA FEW /hpf (NONE SEEN); EPITHELIAL CELLS 0-5 /hpf (0-5); RED CELLS - URINE 0-5 /hpf (0-5); WHITE CELLS - URINE 0-5 /hpf (0-5)
[2018-06-09 05:13] LABS: BASOPHILS 0.8 % (0-2); EOSINOPHILS 6.7 % (0-7); HEMATOCRIT 36.9 % (36.0-48.0); HEMOGLOBIN 11.2 g/dL (12-16); IMMATURE GRANULOCYTES 0.3 % (0-5); LYMPHOCYTES 21.2 % (15-50); MCH 27.8 pg (26.0-34.0); MCHC 30.4 g/dL (31.0-37.0); MCV 91.6 fL (80.0-100.0); MEAN PLATELET VOLUME 10.4 fL (7.4-10.4); MONOCYTES 12.6 % (2-11); NEUTROPHILS 58.4 % (40-80); PLATELET COUNT 284 10x3/uL (130-400); RBC 4.03 10x6/uL (4.00-5.40); RDW 17.6 % (11.5-14.5); WBC 7.3 10x3/uL (4.8-10.8)
[2018-06-09 05:27] LABS: ANION GAP 13.9 mmol/L (8-16); CALCIUM 8.7 mg/dL (8.5-10.1); CARBON DIOXIDE 25.9 mmol/L (21.0-32.0); CREATININE - SERUM 1.4 mg/dL (0.6-1.3); PHOSPHOROUS 3.3 mg/dL (2.5-4.9); POTASSIUM - SERUM 4.8 mmol/L (3.5-5.1)
[2018-06-09 06:18] VITALS: BP 107/73
[2018-06-09 08:20] LABS: CAT - DOPAMINE <30 pg/mL (0-48); CAT - EPINEPHRINE 57 pg/mL (0-62); CAT - NOREPINEPHRINE 483 pg/mL (0-874)
[2018-06-09] MEDS ORDERED: COREG 3.1253.125 MG PO (10:05)
[2018-06-09] MEDS ORDERED: MUCINEX600 MG PO (10:07)
[2018-06-09] MEDS ORDERED: TESSALON PERLE100 MG PO (10:07)
[2018-06-09] MEDS ORDERED: CARAFATE1 G/10 ML PO (10:08)
[2018-06-10 04:13] LABS: ALDOSTERONE 1.1 ng/dL (0.0-30.0)
[2018-06-13 08:09] LABS: META PL - METANEPHRINE 51 pg/mL (0-62); META PL - NORMETANEPHRINE 133 pg/mL (0-145)
== END 2018-06-09 18:29 | disposition home health service (06) | DRG 871 ==
LOC: D.ER 18:41 → D.EDHOLD 20:43 → D.M2 20:43
PROVIDERS: Family Medicine; Internal Medicine Nephrology; Surgery
DX: A41.9 Sepsis, unspecified organism (principal); K85.10 Biliary acute pancreatitis without necrosis or infection; N39.0 Urinary tract infection, site not specified; N17.9 Acute kidney failure, unspecified; I12.9 Hypertensive chronic kidney disease with stage 1 through stage 4 chronic kidney disease, or unspecified chronic kidney disease; N18.3 Chronic kidney disease, stage 3 (moderate); D50.9 Iron deficiency anemia, unspecified; E78.5 Hyperlipidemia, unspecified; I25.10 Atherosclerotic heart disease of native coronary artery without angina pectoris; G40.909 Epilepsy, unspecified, not intractable, without status epilepticus; F41.9 Anxiety disorder, unspecified; N28.1 Cyst of kidney, acquired; K64.9 Unspecified hemorrhoids; K59.00 Constipation, unspecified; R51 Headache; N28.89 Other specified disorders of kidney and ureter; K64.8 Other hemorrhoids; Z95.0 Presence of cardiac pacemaker; Z95.1 Presence of aortocoronary bypass graft

== ENCOUNTER 2020-11-16 07:55 | Day surgery (SDC) | payer MEDICARE ==
--- NOTE | 2020-11-15 13:20 | NUR ---
PT CONFIRMED APPT TOMORROW. PT STATED SHE STOPPED HER ASA ON THURSDAY ALONG WITH HER PLAVIX. TOLD PT TO CONTINUE PLAVIX PER ORDER. SHE VERBALIZED UNDERSTANDING TO TAKE. SHE VERBALIZED UNDERSTANDING TO TAKE HER BLOOD PRESSURE MEDICATION WELL. PT UNDERSTANDS NPO, PT WILL HAVE AIRCRAFT ENGINE SPECIALIST. FILMS UPLOADED.
[~2020-11-16] VITALS: Ht 157.5 cm; Wt 53.2 kg
--- NOTE | ~2020-11-16 | HEMODYNAMI ---
PATIENT:RUPESH JACOB MEDICAL RECORD: [id number] : 44 LOCATION:[facility] ADMISSION DATE: 11/16/20 Generatedon:112:08 Patient name: RUPESH JACOB Patient #: [id number] SSN: : 1940 Date of study: 11/16/2020 Page: Of Hemodynamic Procedure Report Patient Data Patient Demographics Procedure consent was obtained First Name: RUPESH Gender: Female Last Name: NIDIA : 1940 Patient #: [id number] Age: 80 year(s) Race: Unknown Additional ID: [id number] Contact details [address]: [address] [place] [address] ROAD State: [place] City: [place] Zip code: [address] Past Medical History Allergies Allergen Reaction Date Comments Reported Sulfa drugs 11/16/2020 Other allergy 11/16/2020 omeprazole, ultram Admission Admission Data Admission Date: 11/16/2020 Admission Time: 7:55 Procedure Procedure Types Cath Procedure Peripheral Cath Diagnostic Procedure 4-Vessel 4 Vessel Carotid Arterio Arch Procedure Description Procedure Date Procedure Date: 11/16/2020 Procedure Start Time: 11:06 Procedure Staff Name Function Johan Mtz MD Performing Physician Shefali Valentino RT Vacuum Furnace Operator Nikhil Mckeon RT Scrub Destiny Nicholas RN Nurse Jolie López RN Nurse Procedure Data Cath Procedure Fluoroscopy Diagnostic fluoroscopy Total fluoroscopy Time: 0 time: 0 min min Diagnostic fluoroscopy Total fluoroscopy dose: 475 dose: 475 mGy mGy Contrast Material Contrast Material Type Amount (ml) Isovue 300 50 Entry Location Entry Primary Successful Side Size Upsize Upsize Entry Closure Succe ssful Closure Location (Fr) 1 (Fr) 2 (Fr) Remarks Device Remarks Femoral Perclose artery ProGlide Diagnostic catheters Device Type Used For End Catheter Placement Cook HN5 5F/100CM catheter ([id number]) Merit Impress Mendoza 5FR. 100CM catheter ([id number]) Merit UHF Pigtail VESSEL SIZING 5Fr 65CM catheter ([id number]) Procedure Medications Medication Administration Route Dosage Heparin Flush Bag added to field 3 bags (1000units/500ml NS) Lidocaine 1% added to field 20 Versed I.V. 0.5 mg Fentanyl I.V. 25 mcg Heparin Bolus I.V. 2500 units Versed I.V. 0.5 mg Fentanyl I.V. 25 mcg Versed I.V. 0.5 mg Fentanyl I.V. 25 mcg Hemodynamics Rest Heart Rate: 61 (bpm) Snapshots Pre Cath Intra NCS Post Cath Vital Signs Time Heart Resp SPO2 etCO2 NIBP (mmHg) Rhythm Pain Sedation Rate (ipm) (%) (mmHg) Status Level (bpm) 10:49:27 60 24 100 0 153/69(124) NSR 0 (11) 10(A) , No pain 10:53:39 60 7 100 29.5 160/83(89) NSR 0 (11) 10(A) , No pain 10:58:01 62 14 100 20.4 163/74(92) NSR 0 (11) 10(A) , No pain 11:02:19 60 13 100 16.6 175/75(109) NSR 0 (11) 10(A) , No pain 11:06:43 60 15 100 11.3 172/69(95) NSR 0 (11) 10(A) , No pain 11:11:04 60 21 100 29.5 168/74(131) NSR 0 (11) 10(A) , No pain 11:15:21 60 15 100 30.3 184/80(115) NSR 0 (11) 8(A) , No pain 11:19:44 60 19 100 30.3 180/79(116) NSR 0 (11) 8(A) , No pain 11:24:06 60 22 100 29.5 183/80(108) NSR 0 (11) 8(A) , No pain 11:29:05 60 13 100 31.8 Measuring NSR 0 (11) 8(A) , No pain 11:29:29 60 17 100 30.3 185/80(150) NSR 0 (11) 8(A) , No pain 11:33:54 60 14 100 30.3 174/79(130) NSR 0 (11) 8(A) , No pain 11:38:16 60 14 100 29.5 178/73(125) NSR 0 (11) 8(A) , No pain 11:42:38 60 16 100 31.8 170/79(130) NSR 0 (11) 8(A) , No pain 11:46:54 60 16 100 30.3 178/87(142) NSR 0 (11) 8(A) , No pain 11:51:53 64 16 100 31 Measuring NSR 0 (11) 8(A) , No pain 11:52:22 67 18 100 32.5 200/95(153) NSR 0 (11) 8(A) , No pain 11:56:44 66 20 100 0 169/99(115) NSR 0 (11) 8(A) , No pain 12:01:43 64 20 100 0 Measuring NSR 0 (11) 8(A) , No pain 12:02:09 64 19 100 0 123/108(115) NSR 0 (11) 8(A) , No pain 12:04:22 0 127/106(115) NSR 0 (11) 8(A) , No pain 12:07:17 0 164/80(124) NSR 0 (11) 8(A) , No pain Medications Time Medication Route Dose Verified Delivered Reason Notes Effe ctiveness by by 11:00:42 Heparin Flush added 3 Johan Prado used for Bag to bags Bibi Mtz procedure (1000units/500ml field MD HAIR NS) 11:00:56 Lidocaine 1% added 20ml Johan Prado for local to vial Bibi Mtz anesthetic field MD HAIR 11:07:53 Versed I.V. 0.5 Johan Dave for mg Bibi López sedation RN 11:08:05 Fentanyl I.V. 25 Johan Dave for mcg Bibi López sedation RN 11:12:49 Heparin Bolus I.V. 2500 Johan Dave Per units Bibi López physician RN 11:35:51 Versed I.V. 0.5 Johan Dave for mg Bibi López sedation MD RIVERA 11:35:59 Fentanyl I.V. 25 Johan Dave for mcg Bibi López sedation RN 11:50:19 Versed I.V. 0.5 Johan Dave for mg Bibi López sedation RN 11:50:29 Fentanyl I.V. 25 Johan randolph muscogee Bibi López sedation emery wheel worker Log Time Note 10:19:26 Use device set IR Diagnostic 10:37:54 TUBING Contrast Injection High Pressure ([id number]) opened to sterile field. 10:37:54 BENTSON 145cm wire ([id number]) opened to sterile field. 10:37:55 SHEATH 5FR Ochelata (GRQ709) opened to sterile field. 10:37:56 Micropuncture VSI 4FR kit opened to sterile field. 10:37:57 Tegaderm 4 x 4 (1626W) opened to sterile field. 10:37:58 Sterile Angiographic Pack opened to sterile field. 10:37:59 Bag Decanter (2002S) opened to sterile field. 10:38:00 ACIST Manifold (98626) opened to sterile field. 10:38:03 ACIST Hand Control (18239) opened to sterile field. 10:38:05 ACIST Syringe (58985) opened to sterile field. 10:38:12 Time tracking: Regular hours (M-F 7:00 - 5:00) 10:38:39 Patient received from Outpatients to IR Alert and oriented. Tansferred to table in Supine position. 10:44:06 Signed procedure consent form obtained from patient. 10:44:13 H&P Date Dictated: 11/16/2020 Within 30 days and on chart., H&P Addendum completed by physician on day of procedure. (MUST COMPLETE FOR ALL OUTPATIENTS). 10:44:15 Pre-procedure instructions explained to patient. 10:44:16 Pre-op teaching completed and patient verbalized understanding. 10:44:17 Family in waiting room. 10:44:21 Patient NPO since Midnight. 10:44:36 Patient allergic to Sulfa drugs 10:45:22 Patient allergic to Other allergyomeprazole, ultram 10:45:26 Is the patient allergic to Iodine/contrast media? No. 10:45:32 Is patient on blood thinner?Yes, off since thursday 10:45:48 Patient diabetic? No. 10:45:50 - 10:45:51 ----Pre-sedation anethsthesia assessment.---- 10:46:00 Previous problem with sedation/anesthesia? No ? 10:46:04 Snore? Yes 10:46:07 Sleep apnea? No 10:46:09 Deviated septum? No 10:46:11 Opens mouth fully? Yes 10:46:14 Sticks out tongue? Yes 10:46:27 Airway obstruction? Yes cad, pacemaker and heart stents 10:46:36 Dentures? Yes in secure 10:46:47 Right groin area was prepped with chlora-prep and draped in sterile fashion 10:46:49 Alarms reviewed by Zack Khan 10:47:36 ECG and BP/O2 sat monitors applied to patient. 10:47:41 Vital chart was started 10:48:17 Baseline sample Acquired. 10:48:27 Baseline sample Acquired. 10:48:32 Full Disclosure recording started 10:48:36 - 11:00:42 Heparin Flush Bag (1000units/500ml NS) 3 bags added to field was administered by Johan Mtz MD; used for procedure; Verbal order read back and verified. 11:00:56 Lidocaine 1% 20ml vial added to field was administered by Johan wu MD; for local anesthetic; Verbal order read back and verified. 11:04:56 Pre procedure: right dorsailis pedis pulse Doppler 11:05:00 Pre procedure: right posterior tibial pulse Doppler 11:05:06 Physician arrived 11:05:06 --------ALL STOP TIME OUT------ 11:05:07 Final Timeout: patient, procedure, and site verified with staff and physician. All members of the team are in agreement. 11:05:28 Fire Safety Assessment: A--An alcohol-based skin anteseptic being used preoperatively., C--Open oxygen or nitrous oxide is being used. 11:05:35 3b) 30-44 Moderately reduced kidney function. 11:06:03 Procedure started. 11:06:06 Local anesthetic to right femoral artery with Lidocaine 1% by Johan Mtz MD.INITIAL ACCESS ONLY 11:07:53 Versed 0.5 mg I.V. was administered by Jolie López RN; for sedation; Verbal order read back and verified. 11:07:58 A Be Spotted HN5 5F/100CM catheter ([id number]) was advanced over the wire and used for . 11:08:05 Fentanyl 25 mcg I.V. was administered by Jolie López RN; for sedation; Verbal order read back and verified. 11:08:09 A Qalendra Mendoza 5FR. 100CM catheter ([id number]) was advanced over the wire and used for . 11:12:49 Heparin Bolus 2500 units I.V. was administered by Jolie López RN; Per physician; Verbal order read back and verified. 11:14:30 Arterial access obtained using ultrasound guidance. 11:15:07 Right carotid angiography performed. 11:22:57 Left carotid angiography performed. 11:34:19 MILLER 260 wire (V86662) opened to sterile field. 11:34:37 Cordis 6Fr BRITE TIP 11cm sheath opened to sterile field. 11:34:38 INFLATOR BasixTOUCH (TL2039) opened to sterile field. 11:34:49 A RealLifeConnect UHF Pigtail VESSEL SIZING 5Fr 65CM catheter ([id number]) was advanced over the wire and used for . 11:35:51 Versed 0.5 mg I.V. was administered by Jolie López RN; for sedation; Verbal order read back and verified. 11:35:59 Fentanyl 25 mcg I.V. was administered by Jolie López RN; for sedation; Verbal order read back and verified. 11:37:06 Place stent Inflation Number: 1 A Visipro 7 x 27 x 135 Stent ([id number]) was prepped and advanced across the Undefined1 . The stent was deployed at 0 JHOANA for 0:00 (min:sec) . 11:47:02 Inflate balloon Inflation number: 1 A Evercross 8 x 2 x 135 Balloon ([id number]) was prepped and advanced across the Undefined2 , then inflated to 0 JHOANA for 0:00 (min:sec) . 11:49:57 PERCLOSE Proglide 6FR ( [id number]) opened to sterile field. 11:50:19 Versed 0.5 mg I.V. was administered by Jolie López RN; for sedation; Verbal order read back and verified. 11:50:19 A sheath was inserted into the Femoral artery 11:50:19 Sheath removed intact; hemostasis achieved with Perclose ProGlide to th e Femoral artery. 11:50:29 Fentanyl 25 mcg I.V. was administered by Jolie López RN; for sedation; Verbal order read back and verified. 11:50:37 Contrast amount:Isovue 300 50ml. 11:51:30 Procedure ended.(Physican Out) 11:51:51 Fluoroscopy time 00.00 minutes. 11:51:57 Fluoroscopy dose: 475 mGy 11:51:57 Flurop Dose total: 475 11:51:59 Procedure and supply charges have been captured, reviewed, submitted an d are correct. 11:56:23 Procedure and supply charges have been captured, reviewed, submitted an d are correct. 12:08:28 Vital chart was stopped Intervention Summary Intervention Notes Time ActionType Lesion and Equipment Used Action# Pressure Duration Attributes 11:37:06 Place stent Undefined1 Visipro 7 x 27 x 1 0 00:00 135 Stent ([id number]) 11:47:02 Inflate Undefined2 Evercross 8 x 2 x 1 0 00:00 balloon 135 Balloon ([id number]) Device Usage Item Name Manufacture Quantity Catalog Number [facility] nt Minimal Lot# / Charge Number Stock Stock Serial# Code TUBING Contrast Merit 1 [id number] [id number] 799344 39463 2 5 Injection High Medical Pressure ([id number]) BENTSON 145cm Cook Medical 1 [id number] 262285 59656 8 5 wire ([id number]) SHEATH 5FR Terumo 1 QZM441 056979 417230 26695 1 5 Ochelata (FTI029) Micropuncture VSI VSI VASCULAR 1 7266V 651912 82527 8 5 4FR kit SOLUTIONS Tegaderm 4 x 4 3M 1 1626W 571852 554486 16823 0 5 (1626W) Sterile Cardinal 1 [id number] 395082 83601 2 5 Angiographic Pack Health Bag Decanter Microtek 1 826950 15604 85581 8 5 () Medical Inc. ACIST Manifold Acist 1 84586 471818 243645 24292 3 5 (56857) Medical Systems Inc ACIST Hand Acist 1 02895 682911 314267 31213 8 5 Control (20755) Medical Systems Inc ACIST Syringe Acist 1 59472 063735 201638 90303 7 20 (77474) Medical Systems Inc Cook HN5 5F/100CM Cook Medical 1 Z98639 540757 17640 2 2 catheter ([id number]) Merit Impress Merit 1 [id number] 749830 89183 5 5 Mendoza 5FR. Medical 100CM catheter ([id number]) MILLER 260 wire Cook Medical 1 B93899 382554 080947 16044 4 5 [id number] ([id number]) Cordis 6Fr BRITE Cardinal 1 [id number] 693678 83720 6 5 TIP 11cm sheath Health INFLATOR Merit 1 TH6900 237733 632911 86609 5 5 XMOS (GJ4841) Merit UHF Pigtail Merit 1 [id number] 944099 76837 8 5 VESSEL SIZING 5Fr Medical 65CM catheter ([id number]) Visipro 7 x 27 x Medtronic 1 [id number] 745667 873324 05526 5 5 [id number] 135 Stent ([id number]) Evercross 8 x 2 x Medtronic 1 [id number] 796158 680732 47753 6 5 135 Balloon ([id number]) PERCLOSE Proglide Gonzales 1 01369-627 660192 444149 76644 9 5 6FR ( [id number]) Vascular Signature Audit [place] Stage Time Signature Unsigned Intra-Procedure 11/16/2020 Shefali Valentino 12:08:22 PM RT(R) [facility] [address] [place] [address]
[~2020-11-16 07:55] MED LIST changes: +ALPHA LIPOIC ACID; +CARAFATE1 G/10 ML PO; +CATAPRES0.1 MG PO; +COREG 3.1253.125 MG PO; +COZAAR50 MG PO; +LEXAPRO20 MG PO; +MUCINEX600 MG PO; +TESSALON PERLE100 MG PO
[2020-11-16 08:14] LABS: BASOPHILS 0.6 % (0-2); EOSINOPHILS 8.5 % (0-7); HEMATOCRIT 30.6 % (36.0-48.0); IMMATURE GRANULOCYTES 0.2 % (0-5); LYMPHOCYTE ABS# 1.63 10x3/uL (1.18-3.74); LYMPHOCYTES 18.6 % (15-50); MCH 29.1 pg (26.0-34.0); MCHC 29.4 g/dL (31.0-37.0); MEAN PLATELET VOLUME 9.5 fL (7.4-10.4); MONOCYTES 7.8 % (2-11); NEUTROPHIL ABS# 5.62 10x3/uL (1.56-6.13); NEUTROPHILS 64.3 % (40-80); PLATELET COUNT 282 10x3/uL (130-400); RBC 3.09 10x6/uL (4.00-5.40); RDW 15.1 % (11.5-14.5); WBC 8.7 10x3/uL (4.8-10.8)
[2020-11-16 08:22] LABS: ANION GAP 12.6 mmol/L (8-16); CALCIUM 8.5 mg/dL (8.5-10.1); CARBON DIOXIDE 24.2 mmol/L (21.0-32.0); CREATININE - SERUM 1.6 mg/dL (0.6-1.3); INR 1.11 (0.85-1.17); POTASSIUM - SERUM 5.8 mmol/L (3.5-5.1); PROTIME 13.2 SECONDS (11.6-15.0)
[2020-11-16] MEDS ORDERED: BUSPAR10 MG PO (09:29)
[2020-11-16] MEDS ORDERED: CYMBALTA30 MG PO (09:30)
[2020-11-16] MEDS ORDERED: NORVASC2.5 MG PO (09:32)
[2020-11-16 09:48] VITALS: BP 161/58; Ht 157.5 cm; Wt 53.2 kg
[2020-11-16 09:50] LABS: APTT 30.2 SECONDS (22.8-39.4)
--- NOTE | 2020-11-16 17:12 | NUR ---
1535 RECIEVED A FINGER FOOD TRAY. 1635 IV REMOVED PRESSURE HELD. INSTRUCTIONS GIVEN. ASSISTED WITH GETTING DRESSED
== END 2020-11-16 16:45 | disposition home or self-care (01) ==
LOC: D.SP 07:55 → EDSTATUS 10:30 → D.RAD 10:30 → D.SP 16:45
PROVIDERS: ATTEND Radiology Diagnostic Radiology
DX: I65.23 Occlusion and stenosis of bilateral carotid arteries (principal); I70.211 Atherosclerosis of native arteries of extremities with intermittent claudication, right leg

== ENCOUNTER 2020-11-28 10:53 | Inpatient (IN) | payer MEDICARE ==
[~2020-11-28] VITALS: Ht 157.5 cm; Wt 56.8 kg
[~2020-11-28 10:53] MED LIST changes: +BUSPAR10 MG PO; +CYMBALTA30 MG PO; +NORVASC2.5 MG PO
[2020-11-28 11:47] LABS: EOSINOPHILS 7.8 % (0-7); HEMATOCRIT 34.9 % (36.0-48.0); HEMOGLOBIN 10.4 g/dL (12-16); IMMATURE GRANULOCYTES 0.2 % (0-5); LYMPHOCYTES 19.5 % (15-50); MCHC 29.8 g/dL (31.0-37.0); MCV 97.2 fL (80.0-100.0); MEAN PLATELET VOLUME 9.6 fL (7.4-10.4); MONOCYTES 8.3 % (2-11); NEUTROPHIL ABS# 5.85 10x3/uL (1.56-6.13); NEUTROPHILS 63.2 % (40-80); RBC 3.59 10x6/uL (4.00-5.40); RDW 14.4 % (11.5-14.5); WBC 9.3 10x3/uL (4.8-10.8)
[2020-11-28 11:50] LABS: PLATELET COUNT 390 10x3/uL (130-400)
[2020-11-28 12:10] LABS: ALBUMIN 4.6 g/dL (3.4-5.0); ANION GAP 18.2 mmol/L (8-16); BILIRUBIN - TOTAL 0.3 mg/dL (0.2-1.3); CALCIUM 8.8 mg/dL (8.5-10.1); CREATININE - SERUM 1.7 mg/dL (0.6-1.3); POTASSIUM - SERUM 5.2 mmol/L (3.5-5.1); PROTEIN - SERUM 7.8 g/dL (6.4-8.2)
[2020-11-28 13:04] LABS: BACTERIA FEW HPF (NONE SEEN); BILIRUBIN NEGATIVE (NEGATIVE); KETONE NEGATIVE (NEGATIVE); NITRITE NEGATIVE (NEGATIVE); SQUAMOUS EPITHELIAL RARE HPF (0-4); UROBILINOGEN NORMAL mg/dL (< 2); WHITE CELLS - URINE OCC HPF (0-4)
[2020-11-28 13:06] LABS: APTT 31.7 SECONDS (22.8-39.4); INR 1.09 (0.85-1.17)
[2020-12-04] VITALS (28 sets, daily range): BP systolic 110–229; BP diastolic 40–94; Ht 157.5 cm; Wt 56.8 kg
[2020-12-04] MEDS ORDERED: HYDRALAZINE HCL10 MG (08:55)
--- NOTE | 2020-12-04 19:00 | NUR ---
BEDSIDE REPORT COMPLETED WITH OFF GOING NURSE. PT IS RESTING IN BED WITH HOB ELEVATED. NEW ICE PACK RETRIEVED FOR RIGHT NECK INCISION SITE. AMANDA DRAIN IS PRESENT AND COMPRESSED. PT COMPLAINS OF SLIGHT PAIN TO INCISION AREA. INFORMED PT THAT I WOULD BRING HER A PAIN MEDICATION SHORTLY WHEN IT WAS TIME. PT STATED THAT WAS OK. I TOLD HER TO LET ME KNOW IF THE PAIN BECAME UNBEARABLE. PT HAS NO FURTHER COMPLAINTS AT THIS TIME. NO S/S OF DISTRESS NOTED. WILL CONTINUE TO MONITOR.
[2020-12-05] VITALS (90 sets, daily range): BP systolic 104–187; BP diastolic 39–104
--- NOTE | 2020-12-05 10:10 | OP ---
PATIENT NAME: RUPESH JACOB MEDICAL RECORD: [id number] :42 [facility] ADMISSION DATE:12/04/20 SURGEON: JORDEN CAMARA MD DATE OF OPERATION: 12/04/2020 SURGEON: Jorden Camara M.D. PROCEDURE PERFORMED: Right carotid endarterectomy. PREOPERATIVE DIAGNOSIS: Severe right carotid stenosis. POSTOPERATIVE DIAGNOSIS: Severe right carotid stenosis. ANESTHESIA: General endotracheal anesthesia. ESTIMATED BLOOD LOSS: 50 mL. COMPLICATIONS: None. SPECIMENS: Plaque. CONDITION: Stable. DISPOSITION: CV ICU. OPERATIVE FINDINGS: 1. Discrete calcified internal carotid plaque that extended about 3 cm up the internal carotid. There was also significant plaque in the common carotid artery, but less than 50% stenosis. A CorMatrix patch was used for closure. 2. Neurologically intact to ICU, evidence of platelet dysfunction with Plavix and severe crescendo hypertension. INDICATION: Carotid stenosis. PROCEDURE IN DETAIL: The patient was brought to the operating suite. General anesthesia was obtained, the patient was prepped and draped. An oblique incision was made in the right neck, taken down through the subcutaneous tissue where the common carotid was dissected out and encircled. The ANSA was clipped at the origin from the hypoglossal nerve. The hypoglossal nerve was slightly retracted and the external carotid and thyroid branches were encircled with vessel loops. Large facial venous branch was divided between ligatures and suture ligatures. The distal internal carotid was dissected out. Heparin was given. After heparin had circulated backbleeding the internal carotid was controlled with a bulldog clamp. Backbleeding on the external carotid branches and the thyroid branch were controlled with vessel loops and inflow was controlled with a vascular clamp. EEG and cerebral oximetry remained normal throughout the clamping. After 2 minutes an arteriotomy was begun in the common carotid artery taken down through the region of dense calcification into a relatively normal region of internal carotid. Backbleeding from the internal carotid was checked and it was brisk. The plaque was divided in the common carotid artery with an eversion endarterectomy of the external carotid and the plaque feathered well distally. Thorough irrigation was undertaken and all bits of loose debris were removed. The intima was tacked distally with interrupted 7-0 Prolene. The patch was fashioned to the appropriate size and sutured along the edge of the arteriotomy. Prior to completing the anastomosis, backbleeding OPERATIVE REPORT [id number] NIDIARUPESH was allowed from all 3 major vessels and the endarterectomy bed was again flushed with heparinized saline. The anastomosis was completed. Flow was restored first to the external carotid and then to the internal carotid. Several patch sutures were used in fact there was quite an evidence of needle hole bleeding due to the Plavix and a long time was spent with direct pressure and several small 7-0's around the needle holes. Eventually, the patient was hemostatic. A drain was placed through a separate wound. Thorough antibiotic irrigation was undertaken. The neck was closed in 3 layers including Dermabond on the skin. Anesthesia reversed. The patient neurologically intact to the ICU. TRANSINT:[id number] Voice Confirmation ID: [id number] DOCUMENT ID: [id number] JORDEN CAMARA MD at 1010 CC: [id number] DICTATION DATE: 12/04/20 1531 CLINICAL REGISTERED NURSE: 12/05/20 0152 ADM IN [facility] [address] [place] [address]
[2020-12-05 14:33] LABS: BASOPHILS 0.3 % (0-2); EOSINOPHILS 0.3 % (0-7); HEMATOCRIT 23.4 % (36.0-48.0); IMMATURE GRANULOCYTES 0.2 % (0-5); LYMPHOCYTE ABS# 0.84 10x3/uL (1.18-3.74); LYMPHOCYTES 7.5 % (15-50); MCH 28.9 pg (26.0-34.0); MCHC 29.5 g/dL (31.0-37.0); MCV 97.9 fL (80.0-100.0); MONOCYTES 6.9 % (2-11); NEUTROPHIL ABS# 9.47 10x3/uL (1.56-6.13); NEUTROPHILS 84.8 % (40-80); RBC 2.39 10x6/uL (4.00-5.40); RDW 14.7 % (11.5-14.5); WBC 11.2 10x3/uL (4.8-10.8)
[2020-12-05 14:39] LABS: HEMOGLOBIN 6.9 g/dL (12-16); PLATELET COUNT 257 10x3/uL (130-400)
[2020-12-05 14:43] LABS: CALCIUM 7.6 mg/dL (8.5-10.1); CREATININE - SERUM 1.6 mg/dL (0.6-1.3)
[2020-12-06] VITALS (44 sets, daily range): BP systolic 98–166; BP diastolic 33–83
[2020-12-06 08:25] LABS: BASOPHILS 0.4 % (0-2); EOSINOPHILS 4.5 % (0-7); HEMATOCRIT 24.9 % (36.0-48.0); IMMATURE GRANULOCYTES 0.2 % (0-5); LYMPHOCYTE ABS# 1.41 10x3/uL (1.18-3.74); LYMPHOCYTES 14.8 % (15-50); MCH 28.9 pg (26.0-34.0); MCHC 29.7 g/dL (31.0-37.0); MCV 97.3 fL (80.0-100.0); MONOCYTES 12.2 % (2-11); NEUTROPHIL ABS# 6.48 10x3/uL (1.56-6.13); NEUTROPHILS 67.9 % (40-80); PLATELET COUNT 280 10x3/uL (130-400); RBC 2.56 10x6/uL (4.00-5.40); RDW 14.6 % (11.5-14.5); WBC 9.5 10x3/uL (4.8-10.8)
[2020-12-06 08:26] LABS: HEMOGLOBIN 7.4 g/dL (12-16)
[2020-12-06 08:30] LABS: ANION GAP 12.3 mmol/L (8-16); CALCIUM 8.2 mg/dL (8.5-10.1); CARBON DIOXIDE 25.2 mmol/L (21.0-32.0); CREATININE - SERUM 1.6 mg/dL (0.6-1.3); POTASSIUM - SERUM 4.5 mmol/L (3.5-5.1)
--- NOTE | 2020-12-06 16:25 | NUR ---
low spo2 VALUES R/T PT REMOVING O2. UPON RECHECKING EACH HOUR PT'S O2 IS 92-98%.
[2020-12-07] VITALS (13 sets, daily range): BP systolic 114–160; BP diastolic 46–64
--- NOTE | 2020-12-07 08:10 | NUR ---
SITTING UP TO CHAIR. DRSG CDI ON R NECK. NORMOTENSIVE. BREAKFAST PROVIDED, EATING INDEPENDENTLY.
[2020-12-07 09:03] LABS: BASOPHILS 0.5 % (0-2); EOSINOPHILS 7.4 % (0-7); HEMATOCRIT 26.4 % (36.0-48.0); IMMATURE GRANULOCYTES 0.2 % (0-5); LYMPHOCYTE ABS# 1.13 10x3/uL (1.18-3.74); LYMPHOCYTES 11.6 % (15-50); MCH 28.2 pg (26.0-34.0); MCHC 28.4 g/dL (31.0-37.0); MCV 99.2 fL (80.0-100.0); MEAN PLATELET VOLUME 10.3 fL (7.4-10.4); MONOCYTES 10.8 % (2-11); NEUTROPHIL ABS# 6.79 10x3/uL (1.56-6.13); NEUTROPHILS 69.5 % (40-80); PLATELET COUNT 278 10x3/uL (130-400); RBC 2.66 10x6/uL (4.00-5.40); RDW 14.5 % (11.5-14.5); WBC 9.8 10x3/uL (4.8-10.8)
[2020-12-07 09:09] LABS: HEMOGLOBIN 7.5 g/dL (12-16)
[2020-12-07 09:27] LABS: CALCIUM 8.4 mg/dL (8.5-10.1); CARBON DIOXIDE 24.5 mmol/L (21.0-32.0); CREATININE - SERUM 1.7 mg/dL (0.6-1.3); POTASSIUM - SERUM 4.5 mmol/L (3.5-5.1)
--- NOTE | 2020-12-07 09:27 | NUR ---
CRITICALLY LOW HGB REPORTED TO [facility], WITH DR. CAMARA. AMBULATED IN HALLWAY TO THE END AND ALL THE WAY BACK WITHOUT DIZZINESS OR WEAKNESS.
[2020-12-07] MEDS ORDERED: ULTRAM50 MG PO (10:23)
--- NOTE | 2020-12-07 10:30 | NUR ---
CVL PULLED, TIP INTACT. PRESSURE HELD 5 MINUTES. DRSG APPLIED. BANDAID PUT TO CAROTID INCISION SITE. PIV PULLED. TIP INTACT. DRSG APPLIED.
--- NOTE | 2020-12-07 12:01 | NUR ---
D/C INSTRUCTIONS GIVEN BY ORTIZ MARTINEZ RN, AND TAKEN OUT TO CAR WITH SON.
== END 2020-12-07 12:15 | disposition home or self-care (01) | DRG 39 ==
LOC: D.CVICU 12-04 08:21 → D.SDCHOLD 12-04 08:21 → D.CVICU 12-04 14:29
PROVIDERS: ADMIT Thoracic Surgery (Cardiothoracic Vascular Surgery); ATTEND Thoracic Surgery (Cardiothoracic Vascular Surgery)
PROC: 03CK0ZZ Extirpation of Matter from Right Internal Carotid Artery, Open Approach (ICD-10-PCS; principal; 2020-12-04 11:00)
DX: I65.21 Occlusion and stenosis of right carotid artery (principal); I10 Essential (primary) hypertension; D53.9 Nutritional anemia, unspecified

== ENCOUNTER → 2020-12-12 07:56 | Outpatient (CLI) | payer MEDICARE ==
[2020-12-04 21:15] VITALS: BMI 23.6
[~2020-12-12 07:56] MED LIST changes: +HYDRALAZINE HCL10 MG; +ULTRAM50 MG PO
[2020-12-12 09:01] LABS: BASOPHILS 0.4 % (0-2); EOSINOPHILS 4.2 % (0-7); HEMATOCRIT 30.9 % (36.0-48.0); IMMATURE GRANULOCYTES 0.3 % (0-5); LYMPHOCYTE ABS# 1.73 10x3/uL (1.18-3.74); LYMPHOCYTES 15.1 % (15-50); MCH 28.5 pg (26.0-34.0); MCHC 29.1 g/dL (31.0-37.0); MCV 97.8 fL (80.0-100.0); MEAN PLATELET VOLUME 9.8 fL (7.4-10.4); MONOCYTES 8.8 % (2-11); NEUTROPHIL ABS# 8.14 10x3/uL (1.56-6.13); NEUTROPHILS 71.2 % (40-80); RBC 3.16 10x6/uL (4.00-5.40); RDW 14.9 % (11.5-14.5); WBC 11.4 10x3/uL (4.8-10.8)
[2020-12-12 09:18] LABS: PLATELET COUNT 441 10x3/uL (130-400)
== END | disposition home or self-care (01) ==
LOC: D.LAB 07:56
PROVIDERS: ATTEND Thoracic Surgery (Cardiothoracic Vascular Surgery)
DX: Z98.890 Other specified postprocedural states (principal)